=== PATIENT | female | born 1980 ===

== ENCOUNTER 2019-12-11 06:35 | Inpatient (IN) | payer OTHER ==
[~2019-12-11] VITALS: Ht 149.9 cm; Wt 84.4 kg
[2019-12-11] MEDS ORDERED: VALTREX1000 MG PO (07:18)
[2019-12-11] MEDS ORDERED: PRENATAL TABLE1 EAC1 PO ×2 (07:18→07:19)
[2019-12-11] MEDS ORDERED: CHILDREN'S ASPI81 MG PO (07:19)
[2019-12-11] MEDS ORDERED: ZYRTEC10 M3 PO (07:20)
== END 2019-12-13 16:36 | disposition home or self-care (01) | DRG 807 ==
LOC: LDR 06:35 → OB/GYN 06:35
PROVIDERS: ADMIT Obstetrics & Gynecology; ATTEND Obstetrics & Gynecology
PROC: 10E0XZZ Delivery of Products of Conception, External Approach (ICD-10-PCS; principal; 2019-12-11)
PROC: 4A1HXCZ Monitoring of Products of Conception, Cardiac Rate, External Approach (ICD-10-PCS; 2019-12-11)
DX: O80 Encounter for full-term uncomplicated delivery (principal); Z37.0 Single live birth; Z3A.39 39 weeks gestation of pregnancy

== ENCOUNTER 2021-11-02 02:26 | Inpatient (IN) | payer OTHER ==
[~2021-11-02] VITALS: Ht 149.9 cm; Wt 86.2 kg
[~2021-11-02 02:26] MED LIST: CHILDREN'S ASPI81 MG PO; PRENATAL TABLE1 EAC1 PO; VALTREX1000 MG PO; ZYRTEC10 M3 PO
== END 2021-11-04 14:18 | disposition home or self-care (01) | DRG 807 ==
LOC: OBS/DEL 02:26 → SURG-SUITE 10:47 → LDR 10:47 → SURG-SUITE 12:40
PROVIDERS: ADMIT Obstetrics & Gynecology; ATTEND Obstetrics & Gynecology
PROC: 10E0XZZ Delivery of Products of Conception, External Approach (ICD-10-PCS; principal; 2021-11-02)
PROC: 4A1HXCZ Monitoring of Products of Conception, Cardiac Rate, External Approach (ICD-10-PCS; 2021-11-02)
PROC: 0HQ9XZZ Repair Perineum Skin, External Approach (ICD-10-PCS; 2021-11-02)
DX: O70.0 First degree perineal laceration during delivery (principal); Z37.0 Single live birth; Z3A.37 37 weeks gestation of pregnancy; Z20.822 Contact with and (suspected) exposure to COVID-19